=== PATIENT | female | born 1985 | race Caucasian/White ===

== ENCOUNTER 2021-06-17 18:45 | Emergency (ER) | payer OTHER ==
[~2021-06-17] VITALS: Ht 160 cm; Wt 59.0 kg
[2021-06-17] MEDS ORDERED: MUCINEX DM ER1 EAC1 PO (23:28)
[2021-06-17] MEDS ORDERED: ACETAMINOPHEN650 M2 PO (23:28)
[2021-06-17] MEDS ORDERED: PEPCID AC20 MG PO (23:28)
[2021-06-17] MEDS ORDERED: PHENERGAN25 MG PO (23:28)
== END 2021-06-18 00:09 | disposition home or self-care (01) ==
LOC: ER 18:45
DX: B34.9 Viral infection, unspecified (principal); R11.2 Nausea with vomiting, unspecified; R10.13 Epigastric pain